=== PATIENT | female | born 1990 | race African-American/Black ===

== ENCOUNTER 2017-04-20 16:07 | Emergency (ER) | payer OTHER ==
[~2017-04-20] VITALS: Ht 165.1 cm; Wt 52.2 kg
--- NOTE | ~2017-04-20 | EKG ---
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
[2017-04-20] MEDS ORDERED: MOBIC15 MG PO (16:46)
[2017-04-20 17:21] VITALS: BP 128/78
== END 2017-04-20 17:22 | disposition home or self-care (01) ==
LOC: ER 16:07
DX: M25.551 Pain in right hip (principal); R51 Headache; V89.2XXA Person injured in unspecified motor-vehicle accident, traffic, initial encounter; Y93.I9 Activity, other involving external motion; Y92.89 Other specified places as the place of occurrence of the external cause; Y99.8 Other external cause status